=== PATIENT | male | born 1945 | race Caucasian/White ===

== ENCOUNTER 2023-05-07 09:37 | Outpatient (OUT) | payer MEDICARE, SELFPAY ==
[2023-05-07 11:12] LABS: Prostate Specific Antigen Dx 1.39 ng/mL (<=4.00)
[2023-05-07 11:22] LABS: Anion Gap 9.3; BUN Creatinine Ratio 21.2; Calcium 8.7 mg/dL (8.5-10.1); Carbon Dioxide 35.3 mmol/L (21.0-32.0); Chloride 99 mmol/L (98-107); Estimated GFR (African America >60 (>=60); Estimated GFR (Non-African Ame >60 (>=60); Glucose 111 mg/dL (74-106); Potassium 4.6 mmol/L (3.5-5.1); Sodium 139 mmol/L (136-145)
== END 2023-05-07 09:38 | disposition home or self-care (01) ==
LOC: LAB 09:42
PROVIDERS: PCP Family Medicine; Visit Provider Family Medicine
DX: N40.1 Benign prostatic hyperplasia with lower urinary tract symptoms (principal)
CPT/HCPCS: 36415; 80048; 84153